=== PATIENT | male | born 1995 | race Caucasian/White ===

== ENCOUNTER 2018-04-26 12:53 | Emergency (ER) | payer SELFPAY ==
[~2018-04-26] VITALS: Ht 175.3 cm; Wt 80.0 kg
[2018-04-26 13:02] VITALS: BP 134/65
== END 2018-04-26 13:41 | disposition left against medical advice (07) ==
LOC: ER 12:53
DX: Z53.21 Procedure and treatment not carried out due to patient leaving prior to being seen by health care provider (principal)